=== PATIENT | male | born 1970 | race African-American/Black ===

== ENCOUNTER → 2020-09-24 | Outpatient (CLI) | payer OTHER | LOC: CAT 12:04 | PROVIDERS: ATTEND Internal Medicine | DX: Z13.6 Encounter for screening for cardiovascular disorders (principal); E78.00 Pure hypercholesterolemia, unspecified; I25.10 Atherosclerotic heart disease of native coronary artery without angina pectoris ==

== ENCOUNTER → 2020-10-03 | Outpatient (CLI) | payer OTHER | LOC: SJCVCIMAG 08:48 | PROVIDERS: ATTEND Internal Medicine | DX: I08.8 Other rheumatic multiple valve diseases (principal); I25.10 Atherosclerotic heart disease of native coronary artery without angina pectoris; E78.5 Hyperlipidemia, unspecified ==

== ENCOUNTER → 2020-10-30 | Outpatient (CLI) | payer OTHER ==
[~2020-10-30] MED LIST: CONCERTA54 M1 PO; VASCEPA1 GM PO
== END ==
LOC: LAB 07:34
PROVIDERS: ATTEND Student in an Organized Health Care Education/Training Program
DX: Z01.812 Encounter for preprocedural laboratory examination (principal); Z20.822 Contact with and (suspected) exposure to COVID-19

== ENCOUNTER → 2020-11-01 | Outpatient (CLI) | payer OTHER ==
[~2020-11-01] VITALS: Ht 188 cm; Wt 124.7 kg
--- NOTE | 2020-11-04 18:06 | PATH ---
[facility] [address] [place] [address] PATHOLOGY RPT PROCEDURE Name: PEDRO PALACIOS GENE Room #: REG Austin Lindsay#: [id number] Admission: 11/01/20 Date of : 68 Discharge: Report #: [id number] Path Case #: [id number] [facility] Accession Number: [id number] . 01 Material submitted: . cecum - CECAL POLYP . 01 Clinical history: . DTS/COLONOSCOPY /SCREENING CRC . 02 Diagnosis: Polyp, cecal polyp, endoscopic biopsy: - Tubular adenoma. - Negative for high-grade dysplasia. (IUV:pit; 11/04/2020) QTP 11/04/2020 1251 Local . 02 Electronically signed: . Kylee Khan MD, Pathologist NPI- [id number] . 01 Gross description: . Received in formalin labeled "Palacios, Pedro, cecal polyp" are 2 fragments of dickson-brown soft tissue measuring 0.9 x 0.3 x 0.3 cm and 0.9 x 0.6 x 0.4 cm. The surgical resection margins are inked black. The specimen is submitted entirely in A1. ([facility]; 11/02/2020) GZA/GZA 11/02/2020 1112 Local . 02 Pathologist provided ICD-10: D12.0 . 02 CPT . 054611 Specimen Comment: A courtesy copy of this report has been sent to [phone] Specimen Comment: Report sent to DR. LOBO Performed at: [address], [place] [id number] MD Kelvin Gamboa MD Phone: [phone] Performed at: [address] [id number] MD Kylee Khan MD Phone: [phone]
--- NOTE | 2020-11-08 08:14 | P ---
[facility] [place] [address] PROCEDURE REPORT Name: [facility] Room #: REG MARIVEL RobertsJonaWillJona#: [id number] Admission: 11/01/20 Attend Phys: Moreno Harris Discharge: Date of : 68 Report #: [id number] THIS REPORT FOR: cc: Nick Holcomb David J. DO McElhinney, Christian C. MD ~ cc: Nick Holcomb DO DATE OF SERVICE: 11/01/2020 PROCEDURE PERFORMED: Colonoscopy with polypectomy. HISTORY OF PRESENT ILLNESS: The patient is a 50-year-old male who presents today for routine screening colonoscopy. Denies any symptoms. No family history of colon cancer. DESCRIPTION OF PROCEDURE: The risks and benefits of the procedure were explained to the patient, those risks including but not limited to bleeding, perforation and the risk of sedation. He understood these risks and gave informed consent. Sedation was given using propofol per Anesthesia. Next, a digital rectal exam was initially performed, which showed external hemorrhoids, but otherwise normal. Next, using a standard Olympus colonoscope, the scope was placed in the patient's anus and advanced under direct vision to the cecum. The overall prep was excellent. In the cecum, there was a 6 mm sessile polyp. This was removed by snare cautery, otherwise normal. The ileocecal valve was normal. Ascending, transverse and descending colon were normal. In the sigmoid colon, multiple small diverticula were noted, otherwise normal. The rectal mucosa was normal. On retroflexion, small internal hemorrhoids were noted. On close examination of the anal canal, small external hemorrhoids also noted, nonbleeding. No evidence of anal fissure. The scope was then withdrawn and the procedure terminated. The patient tolerated the procedure well. IMPRESSION: 1. Cecal polyp. 2. Sigmoid diverticulosis. 3. Internal and external hemorrhoids. 4. Otherwise, normal colonoscopy. RECOMMENDATIONS: 1. Await biopsy results. 2. Repeat colonoscopy in 5 years. [facility] [address] [place] [address] PROCEDURE REPORT Name: [facility] Room #: REG MARIVEL Lindsay#: [id number] Admission: 11/01/20 Attend Phys: Moreno Harris Discharge: Date of : 68 Report #: [id number] Thank you for allowing me to participate in his care. <ELECTRONICALLY SIGNED> By: Moreno Dominguez MD 11/08/20 0814 [id number] [id number] Moreno Dominguez MD /nt
== END | disposition home or self-care (01) ==
LOC: GI
PROVIDERS: ATTEND Specialist
DX: Z12.11 Encounter for screening for malignant neoplasm of colon (principal); D12.0 Benign neoplasm of cecum; K57.30 Diverticulosis of large intestine without perforation or abscess without bleeding; K64.8 Other hemorrhoids; K64.4 Residual hemorrhoidal skin tags; E78.00 Pure hypercholesterolemia, unspecified; G47.30 Sleep apnea, unspecified; Z98.890 Other specified postprocedural states; Z79.899 Other long term (current) drug therapy; Z20.822 Contact with and (suspected) exposure to COVID-19
CPT/HCPCS: 62110; 62900